=== PATIENT | male | born 2005 | race Caucasian/White ===

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

== ENCOUNTER 2024-07-05 17:09 | Outpatient (REF) | payer OTHER, SELFPAY ==
[2024-07-09 11:43] LABS: Chlamydia Result Negative (Negative); GC Result Negative (Negative)
== END 2024-07-05 17:10 | disposition home or self-care (01) ==
LOC: LBN 17:09
PROVIDERS: PCP Nurse Practitioner Family; Visit Provider Nurse Practitioner Family
DX: N50.819 Testicular pain, unspecified (principal); G43.909 Migraine, unspecified, not intractable, without status migrainosus
CPT/HCPCS: 87491; 87591